=== PATIENT | female | born 1985 | race Hispanic/Latino ===

== ENCOUNTER 2017-07-02 10:02 | Emergency (ER) | payer BC ==
[2017-07-02 10:10] VITALS: BMI 31.6
--- NOTE | 2017-07-02 10:12 | ED PDOC ---
Arrival/HPI - General Time Seen by Provider: 07/02/17 10:07 Historian: Patient - History of Present Illness Narrative History of Present Illness (Text): 07/02/17 10:08 31 y/o female, pmh including seizure (lamictal/klonopin), penicillin allergy, c/ o feeling chest pain and palpitation with hot flushes started early this morning. pt. stated that she woke up this morning, suddenly feeling hot flushes and chest pain with shortness of breath at work, prompt her to come to the ER for evaluation, no seizure activity, no urinary or bowel incontinence or retention, no alcohol or drug abuse, no night sweat, no rash, no other medical or psychological complaints. Past Medical History - Provider Review Nursing Documentation Reviewed: Yes Family/Social History - Physician Review Nursing Documentation Reviewed: Yes Family/Social History: Unknown Family HX Allergies/Home Meds Allergies/Adverse Reactions: Allergies Penicillins Allergy (Severe, Verified 07/02/17 10:10) ANAPHYLAXIS Home Medications: Home Meds Medication Instructions Recorded Confirmed Lamotrigine [Lamictal] 275 mg PO BID 07/02/17 07/02/17 Oxcarbazepine [Trileptal] 900 mg PO BID 07/02/17 07/02/17 clonazePAM [KlonoPIN Wafers] 0.5 mg PO PRN PRN 07/02/17 07/02/17 Review of Systems - Review of Systems Constitutional: absent: Fatigue, Fevers Eyes: absent: Vision Changes ENT: absent: Hearing Changes Respiratory: SOB. absent: Cough, Sputum, Wheezing Cardiovascular: Chest Pain, Palpitations Gastrointestinal: absent: Abdominal Pain, Nausea, Vomiting Musculoskeletal: absent: Arthralgias, Back Pain Skin: absent: Rash, Pruritis Neurological: absent: Headache, Dizziness Psychiatric: absent: Anxiety, Depression, Suicidal Ideation Physical Exam Vital Signs Reviewed: Yes Vital Signs Temp Pulse Resp BP Pulse Ox 07/02/17 15:16 84 18 131/89 96 07/02/17 12:02 110 H 20 137/85 98 07/02/17 10:02 98 F 112 H 20 130/78 98 Temperature: Afebrile Blood Pressure: Normal Pulse: Tachycardic Respiratory Rate: Normal Appearance: Positive for: Well-Appearing, Non-Toxic, Comfortable Pain Distress: Mild Mental Status: Positive for: Alert and Oriented X 3 - Systems Exam Head: Present: Atraumatic, Normocephalic Pupils: Present: PERRL Extroacular Muscles: Present: EOMI Conjunctiva: Present: Normal Mouth: Present: Moist Mucous Membranes Pharnyx: No: ERYTHEMA, EXUDATE, TONSILS ENLARGED, Uvular Deviation, Muffled/ Hoarse Voice, Strider, Soft Palate/Uvular Edema Nose (External): Present: Atraumatic Nose (Internal): Present: Normal Inspection, No Active Bleeding. No: Rhinorrhea , Septal Hematoma, Epistaxis Neck: Present: Normal Range of Motion Respiratory/Chest: Present: Clear to Auscultation, Good Air Exchange. No: Respiratory Distress, Accessory Muscle Use, Wheezes, Decreased Breath Sounds, Rales, Retracting, Rhonchi Cardiovascular: Present: Regular Rate and Rhythm, Normal S1, S2. No: Murmurs Abdomen: Present: Normal Bowel Sounds. No: Tenderness, Distention, Peritoneal Signs Back: Present: Normal Inspection Upper Extremity: Present: Normal Inspection. No: Cyanosis, Edema Lower Extremity: Present: Normal Inspection. No: Edema Neurological: Present: GCS=15, Speech Normal, Motor Func Grossly Intact, Gait Normal, Memory Normal Skin: Present: Warm, Dry, Normal Color. No: Rashes Psychiatric: Present: Alert, Oriented x 3, Normal Insight, Normal Concentration Medical Decision Making ED Course and Treatment: 07/02/17 10:12 -labs/ua/drug screen/dimer/troponin -ekg -cxr or CTA -IVF -groundwater monitoring technician -Observe and reassess 07/02/17 15:57 -HEART score is low -EKG: Sinus Tachycardia @ 136 BPM, no ST elevation or depression, positive S1Q3T3 on ekg, no T wave inversion, no previous ekg for comparison. -Labs are non-significant except Mg 1.6 (IV magnesium 1gm ordered), -Thyroid profile is subclinical hyperthyroidism with normal free T3 and T4, advised outpatient thyroid sonogram and life science teacher/pmd follow up lab and radiology study. -2 sets of troponin is negative -CTA (performed as she is persistent tachycardia despite the dimer is negative ( possible missing PE): Unremarkable CT pulmonary angiogram. No pulmonary embolus. -Resting HR remains 82, talking and smiling with the family. -Discharge home with education on avoid and stop caffeine product and energy drinks, follow up with your own pmd and life science teacher/type disk quality control supervisor within 2 days, return to the ER for any new or worsening signs or symptoms. - Lab Interpretations Lab Results: 07/02/17 10:24 07/02/17 10:24 Lab Results 07/02/17 15:00: Thyroperoxidase Ab <1, Thyroglobulin Antibody <1 07/02/17 15:00: Troponin I < 0.01 07/02/17 13:21: Total T3 1.06 07/02/17 11:20: Urine Opiates Screen Negative, Urine Methadone Screen Negative, Ur Barbiturates Screen Negative, Ur Phencyclidine Scrn Negative, Ur Amphetamines Screen Negative, U Benzodiazepines Scrn Negative, U Oth Cocaine Metabols Negative, U Cannabinoids Screen Negative 07/02/17 10:24: Beta HCG, Quant < 2.39 07/02/17 10:24: Free T4 0.79, TSH 3rd Generation 0.16 L 07/02/17 10:24: Sodium 134, Potassium 3.7, Chloride 97 L, Carbon Dioxide 21, Anion Gap 19, BUN 6 L, Creatinine 0.6 L, Est GFR ( Amer) > 60, Est GFR ( Non-Af Amer) > 60, Random Glucose 122 H, Calcium 9.8, Magnesium 1.6 L, Total Bilirubin 0.2, AST 30, ALT 41, Alkaline Phosphatase 96, Lactate Dehydrogenase 405, Total Creatine Kinase 59, Troponin I < 0.01, Total Protein 7.3, Albumin 4.5 , Globulin 2.8, Albumin/Globulin Ratio 1.6 07/02/17 10:24: D-Dimer, Quantitative 200 07/02/17 10:24: WBC 7.8, RBC 4.37, Hgb 12.8, Hct 37.3, MCV 85.4, MCH 29.3, MCHC 34.3, RDW 12.9, Plt Count 340, MPV 8.5, Gran % 44.4 L, Lymph % (Auto) 43.4 H, [place] % (Auto) 7.0 H, Eos % (Auto) 4.7, Baso % (Auto) 0.5, Gran # 3.47, Lymph # 3.4, [place] # 0.6, Eos # 0.4, Baso # 0.04 I have reviewed the lab results: Yes - RAD Interpretation Radiology Orders: 07/02/17 11:07 ANGIO CHEST PE PROTOCOL [CT] Stat PROCEDURE: CT Chest with contrast (Pulmonary Angiogram) HISTORY: chest pain and shortness of breath, tachycardia COMPARISON: None available. TECHNIQUE: Axial computed tomography images were obtained of the chest in the pulmonary arterial phase of enhancement. Coronal and sagittal reformatted images were created and reviewed. Intravenous contrast dose: 100 cc of Visipaque Radiation dose: Total exam DLP = 394 mGy-cm. This CT exam was performed using one or more of the following dose reduction techniques: Automated exposure control, adjustment of the mA and/or kV according to patient size, and/or use of iterative reconstruction technique. FINDINGS: PULMONARY ARTERIES: Unremarkable. No pulmonary embolism. AORTA: No acute findings. No thoracic aortic aneurysm. LUNGS: Unremarkable. No nodule, mass or pulmonary consolidation. PLEURAL SPACES: Unremarkable. No effusion or pneuomothorax. HEART: Unremarkable. No cardiomegaly. No significant pericardial effusion. LYMPH NODES: No lymphadenopathy. BONES, CHEST WALL: Unremarkable. No fracture or destructive lesion OTHER FINDINGS: Unremarkable. IMPRESSION: Unremarkable CT pulmonary angiogram. No pulmonary embolus. Laminating Press Operator: Radiologist - EKG Interpretation EKG Interpretation (Text): 07/02/17 10:17 -EKG: Sinus Tachycardia @ 136 BPM, no ST elevation or depression, positive S1Q3T3 on ekg, no T wave inversion, no previous ekg for comparison. Interpreted by ED Physician: Yes Type: 12 lead EKG - Medication Orders Current Medication Orders: Discontinued Medications Sodium Chloride (Sodium Chloride 0.9%) 1,000 mls @ 100 mls/hr IV .Q10H MARITZA Last Admin: 07/02/17 11:32 Dose: 100 mls/hr eMAR Start Stop Document 07/02/17 11:32 LA (Rec: 07/02/17 11:39 LA [id number]) Intravenous Solution Start Date 07/02/17 Start Time 11:39 Magnesium Sulfate/Dextrose (Magnesium Sulfate 1 Gm/100 Ml D5w) 1 gm in 100 mls @ 100 mls/hr IVPB ONCE ONE Stop: 07/02/17 12:01 Last Admin: 07/02/17 11:24 Dose: 100 mls/hr eMAR Start Stop Document 07/02/17 11:24 LA (Rec: 07/02/17 11:24 LA [id number]) Intravenous Solution Start Date 07/02/17 Start Time 11:24 - PA / BRAKE DRUM LATHE OPERATOR / Resident Statement MD/DO has reviewed & agrees with the documentation as recorded. Disposition/Present on Arrival - Present on Arrival Any Indicators Present on Arrival: No History of DVT/PE: No History of Uncontrolled Diabetes: No Urinary Catheter: No History of Decub. Ulcer: No - Disposition Have Diagnosis and Disposition been Completed?: Yes Diagnosis: Subclinical hyperthyroidism, Atypical chest pain Disposition: HOME/ ROUTINE Disposition Time: 13:14 Patient Plan: Discharge Condition: IMPROVED Discharge Instructions (ExitCare): Chest Pain (ED), Hyperthyroidism (ED) Additional Instructions: -Discharge home with education on avoid and stop caffeine product and energy drinks, follow up with your own pmd and life science teacher/type disk quality control supervisor within 2 days, return to the ER for any new or worsening signs or symptoms. Referrals: Deondre Rice MD [Primary Care Provider] - Follow up with primary Cam,Clemencia Ratliff MD [Medical Doctor] - Follow up with primary Forms: WORK NOTE
[2017-07-02] MEDS ORDERED: Sodium Chloride 0.9% 1,000 ML IV SCH (10:15)
[2017-07-02 10:35] LABS: BASO # 0.04 K/mm3 (0.0-2.0); BASO % 0.5 % (0.0-3.0); EOS # 0.4 (0.0-0.7); EOS % 4.7 % (1.5-5.0); GRAN # 3.47 (1.4-6.5); GRAN % 44.4 % (50.0-68.0); HEMOGLOBIN 12.8 g/dL (12.0-16.0); LYMPH # 3.4 (1.2-3.4); LYMPH % 43.4 % (22.0-35.0); MEAN CELL VOLUME 85.4 fl (80.0-105.0); MEAN CORPUSCULAR HEMOGLOBIN 29.3 pg (25.0-35.0); MEAN CORPUSCULAR HGB CONC 34.3 g/dl (31.0-37.0); MEAN PLATELET VOLUME 8.5 fl (7.0-11.0); MONO # 0.6 (0.1-0.6); RBC 4.37 10^6/uL (3.5-6.1); RED CELL DISTRIBUTION WIDTH 12.9 % (11.5-14.5); WHITE BLOOD COUNT 7.8 10^3/ul (4.5-11.0)
[2017-07-02 10:51] LABS: ALB/GLOB RATIO 1.6 (1.1-1.8); ALBUMIN 4.5 g/dL (3.0-4.8); ALT/SGPT 41 U/L (7-56); AST/SGOT 30 U/L (14-36); BLOOD UREA NITROGEN 6 mg/dL (7-21); CALCIUM 9.8 mg/dL (8.4-10.5); GFR AFRICAN-AMERICAN > 60; GFR NON-AFRICAN AMERICAN > 60; MAGNESIUM 1.6 mg/dL (1.7-2.2)
[2017-07-02 11:01] LABS: TROPONIN I < 0.01 ng/mL
[2017-07-02] MEDS ORDERED: Magnesium Sulfate 1 gm in D5W 1 GM/100 ML BAG IVPB ONE (11:02)
[2017-07-02 11:06] LABS: FREE T4 0.79 ng/dL (0.78-2.19)
[2017-07-02] MEDS ORDERED: Iodixanol 320 MG/ML 100 ML BOTTLE IV ONE (11:23)
[2017-07-02 11:48] LABS: BARBITURATES, UR NEGATIVE (NEGATIVE); BENZODIAZEPINES, UR NEGATIVE (NEGATIVE); OPIATES, UR NEGATIVE (NEGATIVE); PHENCYCLIDINE, UR NEGATIVE (NEGATIVE)
--- NOTE | 2017-07-02 12:39 | CT ---
PROCEDURE: CT Chest with contrast (Pulmonary Angiogram) HISTORY: chest pain and shortness of breath, tachycardia COMPARISON: None available. TECHNIQUE: Axial computed tomography images were obtained of the chest in the pulmonary arterial phase of enhancement. Coronal and sagittal reformatted images were created and reviewed. Intravenous contrast dose: 100 cc of Visipaque Radiation dose: Total exam DLP = 394 mGy-cm. This CT exam was performed using one or more of the following dose reduction techniques: Automated exposure control, adjustment of the mA and/or kV according to patient size, and/or use of iterative reconstruction technique. FINDINGS: PULMONARY ARTERIES: Unremarkable. No pulmonary embolism. AORTA: No acute findings. No thoracic aortic aneurysm. LUNGS: Unremarkable. No nodule, mass or pulmonary consolidation. PLEURAL SPACES: Unremarkable. No effusion or pneuomothorax. HEART: Unremarkable. No cardiomegaly. No significant pericardial effusion. LYMPH NODES: No lymphadenopathy. BONES, CHEST WALL: Unremarkable. No fracture or destructive lesion OTHER FINDINGS: Unremarkable. IMPRESSION: Unremarkable CT pulmonary angiogram. No pulmonary embolus.
[2017-07-02 13:13] VITALS: TEMP 98
[2017-07-02 15:17] VITALS: BP 131/89; PULSE 84; RESP 18; O2SAT 96
--- NOTE | 2017-07-02 16:30 | CARD ---
APPROVED REPORT EKG Measurement Heart [id number] <Conclusion> Sinus tachycardia Possible Left atrial enlargement Cannot rule out Anterior infarct, age undetermined Abnormal ECG
== END 2017-07-02 16:14 | disposition home or self-care (01) ==
LOC: MERGE 10:02 → ED 10:02
DX: R07.89 Other chest pain (principal); E05.90 Thyrotoxicosis, unspecified without thyrotoxic crisis or storm
CPT/HCPCS: 71275; 80053; 82550; 83615; 83735; 84439; 84443; 84480; 84484; 84702; 85025; 85378; 86376; 86800; 93005; 96374; 99284; G0480; J3475; J7040; Q9967

== ENCOUNTER 2018-08-05 18:07 | Observation (INO) | payer OTHER, BC ==
[2018-08-05 18:07] VITALS: BMI 31.6
[2018-08-05 18:17] VITALS: RESP 18
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
[2018-08-05 20:01] LABS: BASO # 0.02 K/mm3 (0.0-2.0); BASO % 0.2 % (0.0-3.0); EOS # 0.3 (0.0-0.7); EOS % 2.8 % (1.5-5.0); HEMOGLOBIN 12.8 g/dL (12.0-16.0); LYMPH # 1.9 (1.2-3.4); LYMPH % 21.1 % (22.0-35.0); MEAN CELL VOLUME 87.6 fl (80.0-105.0); MEAN CORPUSCULAR HEMOGLOBIN 29.4 pg (25.0-35.0); MEAN CORPUSCULAR HGB CONC 33.6 g/dl (31.0-37.0); MEAN PLATELET VOLUME 8.4 fl (7.0-11.0); MONO # 0.5 (0.1-0.6); MONO % 5.6 % (1.0-6.0); RBC 4.35 10^6/uL (3.5-6.1); RED CELL DISTRIBUTION WIDTH 12.7 % (11.5-14.5); WHITE BLOOD COUNT 8.9 10^3/uL (4.5-11.0)
[2018-08-05 20:02] LABS: ALB/GLOB RATIO 1.7 (1.1-1.8); ALBUMIN 4.9 g/dL (3.0-4.8); ALT/SGPT 31 U/L (7-56); AST/SGOT 26 U/L (14-36); BLOOD UREA NITROGEN 11 mg/dL (7-21); CALCIUM 9.4 mg/dL (8.4-10.5); GFR NON-AFRICAN AMERICAN > 60
[2018-08-05 20:14] LABS: TROPONIN I < 0.01 ng/mL
[2018-08-05 21:54] LABS: BARBITURATES, UR NEGATIVE (NEGATIVE); BENZODIAZEPINES, UR NEGATIVE (NEGATIVE); OPIATES, UR NEGATIVE (NEGATIVE); PHENCYCLIDINE, UR NEGATIVE (NEGATIVE)
[2018-08-05 21:57] LABS: URINE BILIRUBIN NEGATIVE (NEGATIVE); URINE BLOOD NEGATIVE (NEGATIVE); URINE GLUCOSE (UA) NEGATIVE (NEGATIVE); URINE LEUKOCYTE ESTERASE NEGATIVE Leu/uL (NEGATIVE); URINE PROTEIN NEGATIVE mg/dL (<30 mg/dL); URINE UROBILINOGEN 0.2 E.U./dL (<1 E.U./dL)
[2018-08-05 21:59] LABS: URINE COLOR YELLOW (YELLOW)
[2018-08-05 22:00] LABS: URINE APPEARANCE CLEAR (CLEAR)
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
[2018-08-06 01:01] VITALS: O2SAT 98
[2018-08-06 06:32] LABS: HEMOGLOBIN 12.1 g/dL (12.0-16.0); MEAN CELL VOLUME 87.4 fl (80.0-105.0); MEAN CORPUSCULAR HEMOGLOBIN 28.9 pg (25.0-35.0); MEAN CORPUSCULAR HGB CONC 33.1 g/dl (31.0-37.0); MEAN PLATELET VOLUME 8.6 fl (7.0-11.0); RBC 4.19 10^6/uL (3.5-6.1); RED CELL DISTRIBUTION WIDTH 12.9 % (11.5-14.5); WHITE BLOOD COUNT 7.1 10^3/uL (4.5-11.0)
[2018-08-06 06:50] LABS: TROPONIN I < 0.01 ng/mL
[2018-08-06 06:56] LABS: ALB/GLOB RATIO 1.7 (1.1-1.8); ALBUMIN 4.3 g/dL (3.0-4.8); ALT/SGPT 34 U/L (7-56); AST/SGOT 35 U/L (14-36); BLOOD UREA NITROGEN 11 mg/dL (7-21); CALCIUM 9.3 mg/dL (8.4-10.5); GFR NON-AFRICAN AMERICAN > 60
--- NOTE | 2018-08-06 07:07 | CP.PCM.PN ---
Subjective - Date & Time of Evaluation Date of Evaluation: 08/06/18 Time of Evaluation: 07:06 Objective - Vital Signs/Intake and Output Vital Signs (last 24 hours): Temp Pulse Resp BP Pulse Ox 98.1 F 81 18 106/65 98 08/06/18 06:00 08/06/18 06:00 08/06/18 06:00 08/06/18 06:00 08/06/18 00:20 Intake and Output: 08/06/18 08/06/18 06:59 18:59 Intake Total 0 Balance 0 - Medications Medications: Current Medications Acetaminophen (Tylenol 325mg Tab) 650 mg PO Q6H PRN PRN Reason: Pain, moderate (4-7) Last Admin: 08/06/18 05:50 Dose: 650 mg Levetiracetam (Keppra) 500 mg PO BID MARITZA Lorazepam (Ativan) 2 mg IVP Q4 PRN; Protocol PRN Reason: Seizure activity Last Admin: 08/06/18 00:19 Dose: 1 mg - Labs Labs: 08/06/18 06:00 08/06/18 06:00
--- NOTE | 2018-08-06 08:25 | CT ---
Date of service: 08/05/2018 PROCEDURE: CT HEAD WITHOUT CONTRAST. HISTORY: headache COMPARISON: None available. TECHNIQUE: Axial computed tomography images were obtained through the head/brain without intravenous contrast. Radiation dose: Total exam DLP = 1048.55 mGy-cm. This CT exam was performed using one or more of the following dose reduction techniques: Automated exposure control, adjustment of the mA and/or kV according to patient size, and/or use of iterative reconstruction technique. FINDINGS: HEMORRHAGE: No intracranial hemorrhage. BRAIN: Jones-white matter differentiation is preserved. There is no mass, mass effect or abnormal extra-axial fluid collection. There is no territorial infarction. The midline sagittal structures are normal. VENTRICLES: The ventricles are normal in size, shape and configuration. CALVARIUM: There is no calvarial fracture or extracranial soft tissue swelling. Status post left parietal craniotomy. PARANASAL SINUSES: There is minimal mucosal thickening in the left maxillary sinus and bilateral ethmoid air cells. The remaining included paranasal sinuses are clear. MASTOID AIR CELLS: Predominantly clear. OTHER FINDINGS: None. IMPRESSION: No acute intracranial abnormality. A preliminary report was provided by [facility].
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
--- NOTE | 2018-08-06 11:40 | CARD ---
APPROVED REPORT Date of service: 08/05/2018 EKG Measurement Heart [id number] <Conclusion> Normal sinus rhythm with sinus arrhythmia Nonspecific T wave abnormality Abnormal ECG
[2018-08-06 12:16] VITALS: BP 114/78; PULSE 79; TEMP 98.9
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
== END 2018-08-06 13:05 | disposition home or self-care (01) ==
LOC: ED 18:07 → ERH 22:31 → 2RNO 08-06 01:11
PROVIDERS: ADMIT Hospitalist; ATTEND Hospitalist
DX: G40.909 Epilepsy, unspecified, not intractable, without status epilepticus (principal); S09.90XA Unspecified injury of head, initial encounter; S20.219A Contusion of unspecified front wall of thorax, initial encounter; F17.210 Nicotine dependence, cigarettes, uncomplicated; V89.2XXA Person injured in unspecified motor-vehicle accident, traffic, initial encounter; Y92.410 Unspecified street and highway as the place of occurrence of the external cause; Z86.011 Personal history of benign neoplasm of the brain; Z88.0 Allergy status to penicillin
CPT/HCPCS: 36415; 70450; 80053; 80175; 80324; 80345; 80346; 80349; 80353; 80358; 80361; 81003; 82550; 82948; 83615; 83735; 83789; 83992; 84100; 84484; 84702; 85025; 85027; 93005; 96374; 99285; G0378; J2060